=== PATIENT | male | born 1990 | race Hispanic/Latino ===

== ENCOUNTER 2024-09-15 16:43 | Emergency (ER) | payer OTHER, SELFPAY ==
[2024-09-15 16:54] VITALS: BP 165/89; PULSE 101; RESP 18; TEMP 36.4; O2SAT 99
--- NOTE | 2024-09-15 18:15 | ED_ITS ---
HPI - Eye Problem General Chief complaint: Eye Problems Stated complaint: Branch in eye Time Seen by Provider: 09/15/24 17:49 History of Present Illness HPI Narrative: Patient is a 34-year-old male who presents to the ER following an injury to his left eye. He reports he was pulling branches at work when 1 of them came loose and came back hitting him. Patient denies pain with ocular movements but endorses photophobia. He denies any previous injury to either of his eyes. Patient denies any pertinent medical history relevant this ER visit. He denies any pain to the orbital area, laceration to the eyelid, or recent fevers. Related Data Allergies Allergy/AdvReac Type Severity Reaction Status Date / Time Penicillins Allergy Unknown Unknown Verified 09/15/24 18:37 Review of Systems Review of Systems: All systems reviewed & are unremarkable except as noted in HPI and below Exam Narrative: GENERAL: Well appearing, well-nourished, non-toxic, in no acute distress. HEAD: Normocephalic, atraumatic. PERRLA bilaterally. L eye reddened sclera, under fluorecin strips, tetracaine drops and Wood's lamp examination pt has an approximately 4mm linear abrasion across his cornea NECK: Supple. No adenopathy, no masses. RESPIRATORY: Airway patent, respirations nonlabored. Clear to auscultation bilaterally, no rales, rhonchi, wheezing. CARDIOVASCULAR: Regular rate and rhythm without murmurs, rubs, or gallops. Peripheral pulses 2+ and equal bilaterally. ABDOMINAL: Soft, nontender, nondistended, no hepatosplenomegaly. Normoactive BS. MUSCULOSKELETAL: Moves all extremities. Strength/ROM intact without gross deformities. SKIN: Warm, dry, normal color. No rashes. NEURO: A&O X3. Speech clear. Cranial nerves II-XII intact. No ataxic movements. PSYCHIATRIC: Appropriate mood and affect. Normal interaction. Course Vital Signs Vital signs: Vital Signs Temperature 36.4 C L 09/15/24 16:54 Pulse Rate 101 H 09/15/24 16:54 Respiratory Rate 18 09/15/24 16:54 Blood Pressure 165/89 H 09/15/24 16:54 Pulse Oximetry 99 09/15/24 16:54 Temperature 36.4 C L 09/15/24 16:54 Pulse Rate 101 H 09/15/24 16:54 Respiratory Rate 18 09/15/24 16:54 Blood Pressure 165/89 H 09/15/24 16:54 Pulse Oximetry 99 09/15/24 16:54 MDM - Eye Problem MDM Narrative Medical decision making narrative: Patient is a 34-year-old male who presents to the ER following an injury to his left eye. He reports he was pulling branches at work when 1 of them came loose and came back hitting him. Patient denies pain with ocular movements but endorses photophobia. He denies any previous injury to either of his eyes. Patient denies any pertinent medical history relevant this ER visit. He denies any pain to the orbital area, laceration to the eyelid, or recent fevers. Labs Ordered: None necessary Medications Ordered: Fluorescein strips, Tetracaine drops, Polytrim eye drops Results: Under fluorescein strips, tetracaine drops and Wood's lamp examination pt has an approximately 4mm linear abrasion across his cornea Diagnosis: corneal abrasion Consults: ophthalmology (outpatient) Patient Education/Shared MDM: Results of examination shared with patient. He will be given his first dose of antibiotic eye drop administration here in the ER. Patient advised to follow-up with ophthalmology as soon as possible. He will be discharged home with a prescription for Polymyxin drops. Strict return precautions provided. Patient verbalized understanding and is in agreement with plan. Vital signs stable at time of discharge. All questions answered. Differential Diagnosis Differential diagnosis: Likely corneal abrasion, conjunctivitis, subconjunctival hemorrhage and corneal ulcer Discharge Plan Discharge Clinical Impression: Corneal abrasion Patient Disposition: Home Condition: Stable Instructions: Antibiotic Form, Corneal Abrasion (ED) Additional Instructions: Please return to the ER with any worsening symptoms. Follow-up with and enrolled nurse as soon as possible. Take all medications as prescribed. You may use Tylenol and ibuprofen together for pain control. Please user antibiotic eyedrops until you follow-up with the eye doctor. Patient Language: Ivorian Prescriptions: New polymyxin B sulf-trimethoprim 10,000 unit- 1 mg/mL drops 1 drp EACH EYE Q3H 7 Days Qty: 10 0RF Rx Instructions: while awake; do not exceed 6 doses in 24 hours Follow-up/Referrals: Maxine Esposito DO [Physician] - (family medicine primary care provider) PHYSICIAN NOT ON STAFF,NONSTAFF [Primary Care Provider] - Unwin,Hermann Rasmussen MD [Non-Staff] - (eye doctor) Stand Alone Forms: Work/School Release IP Time of Disposition: 18:54
--- NOTE | 2024-09-15 19:11 | PC.NURSE ---
Assumed care of patient after receiving bedside report from SHRUTI Virk @ [phone]
[2024-09-15] MEDS: POLYMYXIN/TRIMETHOPRIM OPHTH 10 ML DROPS 1 DROP LEFT EYE (19:23)
== END 2024-09-15 19:26 | disposition home or self-care (01) ==
PROVIDERS: Emergency Provider Registered Nurse
DX: S05.02XA Injury of conjunctiva and corneal abrasion without foreign body, left eye, initial encounter (principal); W22.8XXA Striking against or struck by other objects, initial encounter
CPT/HCPCS: 99283; A9270